=== PATIENT | male | born 1955 | race African-American/Black ===

== ENCOUNTER 2023-03-03 15:32 | Emergency (ER) | payer SELFPAY ==
[2023-03-03 15:35] VITALS: BP 135/95; PULSE 60; RESP 18; TEMP 36.8; O2SAT 100
[2023-03-03 15:40] VITALS: RESP 17; O2SAT 100
--- NOTE | 2023-03-03 15:58 | ED.GENADULT ---
HPI - General Adult General Chief complaint: Unspecified Stated complaint: confused Time Seen by Provider: 03/03/23 15:52 History of Present Illness HPI narrative: 67 year old male presented requesting food. Per patient, he presented to the ED to request food. He otherwise denied medical complaints. Denied headache, chest pain, shortness of breath, abdominal pain, fevers, chills, nausea, vomiting, dysuria, diarrhea, sick contacts. He reports he has a social work that is helping him with housing, not requiring other services. Past Medical History: denied Past Surgical History: denied Medications: denied Allergies: no known drug allergies Related Data Allergies Allergy/AdvReac Type Severity Reaction Status Date / Time No Known Allergies Allergy Verified 03/03/23 15:43 Review of Systems Review of Systems: See HPI Exam Narrative: General: Alert, calm and cooperative, no acute distress, phonating, sitting comfortably during visit, disheveled HEENT: Pupils equal round and reactive to light, extra ocular movements intact, no conjunctival injection, head atraumatic, neck supple without meningismus Cardiovascular: Regular rate and rhythm, no visible jugular venous distension Respiratory: Lungs clear to auscultation bilaterally, no wheezing/rales/rhonchi Abdominal: soft, non-tender, non-distended, no guarding, no rebound/peritoneal signs, no costovertebral tenderness to palpation Back: no midline tenderness to palpation, no step offs Extremities: No edema, palpable peripheral pulses, warm, well perfused, no tenderness to bilateral calves Neurological: Alert, moving all extremities symmetrically, ambulating without deficit Course Vital Signs Vital signs: Vital Signs Temperature 98.3 F 03/03/23 15:35 Pulse Rate 60 03/03/23 15:35 Respiratory Rate 18 03/03/23 15:35 Blood Pressure 135/95 H 03/03/23 15:35 Pulse Oximetry 100 03/03/23 15:35 Oxygen Delivery Room Air 03/03/23 15:35 Temperature 98.3 F 03/03/23 15:35 Pulse Rate 60 03/03/23 15:35 Respiratory Rate 17 03/03/23 15:40 Blood Pressure 135/95 H 03/03/23 15:35 Pulse Oximetry 100 03/03/23 15:40 Oxygen Delivery Room Air 03/03/23 15:35 Medical Decision Making [facility] Narrative Medical decision making narrative: 63 year old male presented requesting food. Denied other medical complaints. Physical exam benign, disheveled, abdomen soft and non tender, vitals stable. Reporting has resources for housing. Patient provided with food. Patient appropriate for discharge. Vital Signs Vital Signs: Vital Signs Temperature 98.3 F 03/03/23 15:35 Pulse Rate 60 03/03/23 15:35 Respiratory Rate 18 03/03/23 15:35 Blood Pressure 135/95 H 03/03/23 15:35 Pulse Oximetry 100 03/03/23 15:35 Oxygen Delivery Room Air 03/03/23 15:35 Temperature 98.3 F 03/03/23 15:35 Pulse Rate 60 03/03/23 15:35 Respiratory Rate 17 03/03/23 15:40 Blood Pressure 135/95 H 03/03/23 15:35 Pulse Oximetry 100 03/03/23 15:40 Oxygen Delivery Room Air 03/03/23 15:35 Discharge Plan Discharge Clinical Impression: Hungry Qualifiers: Encounter type: initial encounter Qualified Code(s): T73.0XXA - Starvation, initial encounter Patient Disposition: Home, Self-Care Condition: Stable Instructions: Antibiotic Form Additional Instructions: As we discussed, please return to the Emergency Department or seek medical attention if you feel worsening or change of your symptoms including but not limited to worsening pain, chest pain, difficulty breathing, lightheadedness/dizziness, or any other concerning symptoms. If any appointments were recommended for you, please make sure to go to them, as follow up from the Emergency Department is important. Thank you. Follow-up/Referrals: Fidel Bailey MD [Physician] - Time of Disposition: 15:58
--- NOTE | 2023-03-03 16:55 | PC.NURSE ---
pt said he has no body, no family and no place to go, medical care evaluation specialist made aware.
--- NOTE | 2023-03-03 17:24 | PCCCNOTE ---
Called to ED for transportation for possible homeless man. Pt stated that he had cell phone and food left at [facility]. I called [facility] and no possesion there. Called [facility] and they have no record of him being incarcerated since August. Called [employer] police who called EMS and they checked there body cam and determined pt had no possessions. Cab ride offered to pt and pt wants ride to [address] [facility]. Cab voucher given to ED nurse.
[2023-03-03 17:35] VITALS: BP 121/74; PULSE 76; RESP 18; O2SAT 100
== END 2023-03-03 17:40 | disposition home or self-care (01) ==
PROVIDERS: Emergency Provider Emergency Medicine
DX: T73.0XXA Starvation, initial encounter (principal)
CPT/HCPCS: 99281